=== PATIENT | female | born 1970 | race Two or more races ===

== ENCOUNTER 2016-08-09 09:05 | Emergency (ER) ==
[2016-08-09 09:12] VITALS: BP 123/86; TEMP 99.5; BMI 29.2
--- NOTE | 2016-08-09 09:39 | ED.PDOC ---
General ED Provider: Dr. MARY ESPINAL JR Chief Complaint: Sore Throat Stated Complaint: sore throat started yesterday[End]Sore throat since yesterday , fever 99.5 90 16 97% 123/86 10 Time Seen by Physician: 09:39 Mode of Arrival: Walk-In Information Source: Patient Exam Limitations: No limitations Primary Care Provider: [facility] Nursing and Triage Documentation Reviewed and Agree: No EENT Complaint Exam - Throat Complaint/Exam Onset/Duration: 1 day Symptoms Are: Still present Timimg: Constant Initial Severity: Moderate Current Severity: Moderate Aggravating: Reports: None Alleviating: Reports: None Associated Signs and Symptoms: Reports: Fever (right neck node) Related History: Reports: Similar Episode Uvula Midline: Yes Exanthem: Present: Pharynx Stridor Present: No Sinus Tenderness Present: No Tonsillar Hypertrophy Present: No Tonsillar Exudate Present: No Naida-tonsillar Swelling Present: No Adenopathy Present: Yes Splenomegaly Present: No Differential Diagnoses: Pharyngitis Review of Systems - Review Of Systems Constitutional: Reports: Fever, Malaise, Weakness Eyes: Reports: No symptoms Ears, Nose, Mouth, Throat: Reports: Mouth pain, Throat pain Respiratory: Reports: No symptoms Cardiac: Reports: No symptoms GI: Reports: No symptoms : Reports: No symptoms Musculoskeletal: Reports: No symptoms Neurological: Reports: No symptoms, Weakness Endocrine: Reports: No symptoms Hematologic/Lymphatic: Reports: No symptoms All Other Systems: Other Past Medical History - Past Medical History Endocrine: Reports: None Cardiovascular: Reports: None Respiratory: Reports: None Hematological: Reports: None Gastrointestinal: Reports: None Genitourinary: Reports: None Neuro/Psych: Reports: Anxiety, Depression Musculoskeletal: Reports: None Cancer: Reports: None Last Menstrual Period: july - Surgical History General Surgical History: Reports: Unknown - Family History Family History: Reports: Unknown - Social History Smoking Status: Never smoker Hx Substance Use: No Alcohol Screening: None - Immunizations Tetanus Shot up to Date: No Physical Exam - Physical Exam Appearance: Ill-appearing Ill-appearing: Moderate Pain Distress: Moderate Eyes: STACIE, EOMI, Conjunctiva clear ENT: Ears normal, Nose normal, Erythema Neck: Supple (right submandibular node-tender) Respiratory: Airway patent, Breath sounds clear, Breath sounds equal, Respirations nonlabored Cardiovascular: RRR, Pulses normal, No rub, No murmur GI/: Soft, Nontender, No masses, Bowel sounds normal, No Organomegaly Musculoskeletal: Normal strength, ROM intact, No edema, No calf tenderness Skin: Warm, Dry, Normal color Neurological: Sensation intact, Motor intact, Reflexes intact, Cranial nerves intact, Alert, Oriented Psychiatric: Affect appropriate, Mood appropriate Critical Care Note - Critical Care Note Total Time (mins): 0 Course - Course Orders, Labs, Meds: Orders Category Date Time Status RAPID FLU A/B Stat LAB 08/08/16 09:20 Received STREP SCREEN Stat LAB 08/08/16 09:20 Received Vital Signs: Temp Pulse Resp BP Pulse Ox 08/09/16 09:05 99.5 F 90 16 123/86 97 Departure - Departure Time of Disposition: 09:49 Disposition: HOME SELF-CARE Discharge Problem: Sore throat symptom, Lymphadenitis, Strep pharyngitis Instructions: Lymphadenopathy (ED), Strep Throat (ED) Condition: Good Pt referred to PMD for follow-up: Yes Additional Instructions: Do not share food or drink avoid children until on antibiotic for full 24 hours recheck PMD two weeks antibiotic until gone clindamycin antiobiotic return if worse Prescriptions: Naproxen [Naprosyn] 500 mg PO Q12HR PRN #30 tablet PRN Reason: PAIN Clindamycin HCl 300 mg PO QID #40 capsule Allergies/Adverse Reactions: Allergies Penicillins Adverse Reaction (Verified 07/15/15 01:38) Home Medications: Ambulatory Orders Sertraline HCl [Zoloft] 25 mg PO DAILY 11/10/12 Clindamycin HCl 300 mg PO QID #40 capsule 08/09/16 Naproxen [Naprosyn] 500 mg PO Q12HR PRN #30 tablet 08/09/16
[2016-08-09 09:53] LABS: FLU INTERNAL QC INTERNAL QC VALID; RAPID FLU A NEGATIVE (NEGATIVE); RAPID FLU B NEGATIVE (NEGATIVE)
== END 2016-08-09 10:09 | disposition home or self-care (01) ==
LOC: ED 09:05
DX: J02.0 Streptococcal pharyngitis (principal); I88.9 Nonspecific lymphadenitis, unspecified
CPT/HCPCS: 87804; 87880; 99282

== ENCOUNTER 2016-10-05 09:32 | Outpatient (CLI) ==
[2012-11-10 13:35] VITALS: TEMP 97.8
[2016-10-05 09:56] LABS: BASOPHILS # (AUTO) 0.1 K/uL (0-0.2); BASOPHILS % (AUTO) 0.7 % (0.0-3.0); EOSINOPHILS # (AUTO) 0.1 K/ul (0.0-0.7); EOSINOPHILS % (AUTO) 1.7 % (0.0-7.0); HEMATOCRIT 40.1 % (37.0-47.0); HEMOGLOBIN 13.5 g/dl (12.0-16.0); IMMATURE GRANULOCYTE % (AUTO) 0.4 % (0.0-5.0); LYMPHOCYTES # (AUTO) 2.3 K/uL (0.60-3.4); LYMPHOCYTES % (AUTO) 30.1 (10.0-50.0); MEAN CORPUSCULAR HEMOGLOBIN 28.8 pg (27.0-31.0); MEAN CORPUSCULAR HGB CONC 33.7 (31.8-35.4); MEAN CORPUSCULAR VOLUME 85.5 fl (81.0-99.0); MONOCYTES # (AUTO) 0.6 K/uL (0.4-2.0); MONOCYTES % (AUTO) 7.6 (0-10); NEUTROPHILS # (AUTO) 4.6 K/ul (2.0-6.9); NEUTROPHILS % (AUTO) 59.5; PLATELET COUNT 206 10^3/uL (140-440); RED BLOOD COUNT 4.69 10^6/ul (4.20-5.40); WHITE BLOOD COUNT 7.64 K/ul (4.6-10.2)
[2016-10-05 10:11] LABS: PARTIAL THROMBOPLASTIN TIME 23.8 SEC (23.9-40.0); PROTHROMBIN TIME 10.1 SEC (9.3-11.0)
[2016-10-05 10:13] LABS: ALANINE AMINOTRANSFERASE 21 U/L (12-78); ASPARTATE AMINO TRANSFERASE 16 U/L (15-37)
[2016-10-07 16:04] LABS: PROTEIN S, FREE 66 % (57-157); PROTEIN S, TOTAL 136 % (60-150)
[2016-10-07 16:05] LABS: PROTEIN C ANTIGEN 76 % (60-150)
== END 2016-10-05 09:33 | disposition home or self-care (01) ==
LOC: LAB 09:32
PROVIDERS: ATTEND Optometrist
DX: H11.31 Conjunctival hemorrhage, right eye (principal)
CPT/HCPCS: 36415; 84450; 84460; 85025; 85302; 85305; 85306; 85610; 85730

== ENCOUNTER 2018-12-01 13:07 | Outpatient (CLI) ==
[2012-11-10 13:35] VITALS: TEMP 97.8
--- NOTE | 2018-12-02 10:27 | MAMMO ---
EXAM: Digital screening mammogram with Tomosynthesis HISTORY: Screening COMPARISON: 11/20/2015 FINDINGS: Digital MLO and CC views of the right and left breast were performed. Tomosynthesis was performed. Computer aided detection utilized. There are scattered fibroglandular densities. There i s no evidence for mass, asymmetry, distortion, or suspicious calcifications in either breast. IMPRESSION: 1. No evidence of malignancy in the right or left breast. 2. Annual screening mammogram is recommended in one year. BIRADS category 1, negative examination
== END 2018-12-01 13:08 | disposition home or self-care (01) ==
LOC: RAD 13:07
PROVIDERS: ATTEND Registered Nurse
DX: Z12.31 Encounter for screening mammogram for malignant neoplasm of breast (principal)